=== PATIENT | female | born 1970 | race Hispanic/Latino ===

== ENCOUNTER 2017-11-24 09:44 | Outpatient (CLI) | payer BC ==
--- NOTE | 2017-11-24 12:48 | MRI ---
MRI OF THE LUMBAR SPINE WITHOUT CONTRAST: INDICATION: Low back pain with lumbar radiculopathy. TECHNIQUE: Multiplanar, multisequence MR images were obtained of the lumbar spine. No comparisons are available . FINDINGS: At L5-S1, there is a broad-based bulge with facet hypertrophy inducing mild central canal narrowing w ith moderate bilateral neural foraminal narrowing, left greater than right. At L4-5, there is a broad-based bulge with facet joint degenerative change without appreciable centra l canal or neural foraminal narrowing. At L3-4, there is a broad-based bulge without appreciable central canal or neural foraminal narrowing . At L2-3, there is a broad-based bulge with superimposed ventral disk protrusion without appreciable n eural foraminal narrowing. At L1-2, there is no appreciable central canal or neural foraminal narrowing. IMPRESSION: 1. Multilevel spondylosis of the lumbar spine most pronounced at L5-S1 where there is a broad-based bulge. The broad-based bulge does contact the traversing bilateral S1 nerve roots without definite i mpingement. There is moderate bilateral neural foraminal narrowing, left greater than right, and L5- S1. 2. Broad-based bulge superimposed on central disk protrusion at L2-3 causing mild ventral effacement of the anterior thecal sac. POS: MELINDA
== END 2017-11-24 09:45 | disposition home or self-care (01) ==
LOC: SCSMRI 09:44
DX: M51.17 Intervertebral disc disorders with radiculopathy, lumbosacral region (principal); M51.16 Intervertebral disc disorders with radiculopathy, lumbar region; M47.26 Other spondylosis with radiculopathy, lumbar region; M47.27 Other spondylosis with radiculopathy, lumbosacral region; M99.83 Other biomechanical lesions of lumbar region
CPT/HCPCS: 72148

== ENCOUNTER 2017-12-30 15:37 | Outpatient (CLI) | payer BC | END 2017-12-30 15:38 | disposition home or self-care (01) | LOC: LABBT 15:37 | PROVIDERS: ATTEND Neurological Surgery | DX: Z01.818 Encounter for other preprocedural examination (principal); M54.16 Radiculopathy, lumbar region | CPT/HCPCS: 93005; 93010 ==

== ENCOUNTER 2018-01-04 05:44 | Day surgery (SDC) | payer BC ==
[2017-12-30 16:01] VITALS: BMI 34.6
--- NOTE | 2018-01-04 01:36 | HP ---
HISTORY OF PRESENT ILLNESS: Ms. Westfall is a 47-year-old woman, who is presenting today for evaluation o f bilateral S1 pains. She has an MRI from [facility] that reveals broad based disk protrusi on at L5 that impedes upon of the S1 nerve roots in the lateral recesses bilaterally. She has treate d this with injections, physical therapy, and medications and hopes to move forward with surgery at t his time. PAST MEDICAL HISTORY: Significant for hypercholesterolemia, hypertension, diabetes, iron deficiency anemia, anxiety, thyroid cancer and hysterectomy. CURRENT MEDICATIONS: Include tramadol, escitalopram, glimepiride, norethindrone, eflornithine, lisin opril, iron, metformin, simvastatin, hydroxyzine and gabapentin. PHYSICAL EXAMINATION: NEUROLOGIC: The patient is alert and oriented x3. Gait is mildly antalgic. Lower extremity motor e xam is normal. ASSESSMENT: Lumbar radiculopathy. PLAN: Dr. Cabrera met with the patient, reviewed imaging and advocated for an L5 decompression and pos sible diskectomy. He explained to the patient the risks, benefits, and alternatives to the procedure . The patient expressed understanding and would like to move forward with surgery as discussed. I d o believe the patient is mentally competent and capable of making medical decisions for herself and w e will move forward with surgery as planned. Sebastian Werner PA-C dictating for Dr. Cabrera.
[2018-01-04] MEDS ORDERED: Thrombin 5000 UNITS/5 ML VIAL ONE (07:02)
[2018-01-04] MEDS ORDERED: Bupivacaine HCl 0.5%/Epinephrine 1:200,000/PF 30 ml Vial ONE (07:02)
[2018-01-04] MEDS ORDERED: CEFAZOLIN/Water 2 GM/20 ML SYRINGE ONE (07:31)
[2018-01-04] MEDS ORDERED: Midazolam HCl 2 mg/2 ml Vial ONE (07:56)
[2018-01-04] MEDS ORDERED: Fentanyl 100 MCG/2 ML VIAL ONE ×3 (07:56→10:18)
--- NOTE | 2018-01-04 10:39 | OP ---
DATE OF PROCEDURE: 01/04/2018 SURGEON: Remington Cabrera M.D. PAINT SPECIALIST: None. INDICATION: Pain. DIAGNOSIS: Lumbar stenosis with lumbar radiculopathy. PROCEDURE: L5 decompression, bilateral medial facetectomies. ANESTHESIA: General. TECHNIQUE: The patient was brought into the operating room and placed under general anesthesia. She was flipped from a supine or prone position on operating room table. A linear incision was planned over the L5-S1 segment. After prepping and draping and after an appropriate operative pause, the inc ision was created. The soft tissues were swept away from midline. Self-retaining retractors were pl aced in the wound for optimal exposure. After confirming the appropriate level with C-arm fluoroscop y, a high-speed cutting drill bit as well as an Adson rongeur as well as 2, 3 and 4-mm Kerrison was u sed to perform a laminectomy at the inferior two-thirds of L5 and the superior aspect of S1. Laminec fanny was extended laterally to encompass the medial third of the facet joints in order to adequately decompress the descending S1 nerve roots. The disk space was palpated and there was not a soft, prot uberant disk rather osteophyte present. There was no diskectomy performed. After decompressing the lateral recess the central canal and descending S1 nerve roots, the wound was irrigated. Hemostasis was maintained throughout. The wound was then closed in anatomic layers and a pressure dressing was applied. There were no known procedural complications.
[2018-01-04] MEDS ORDERED: HYDROcodone/Acetaminophen 5/325 mg Tablet ONE (11:57)
[2018-01-04] MEDS ORDERED: ePHEDrine/0.9% NaCl/PF SYRINGE 50 mg/10 ml ONE (14:29)
[2018-01-04] MEDS ORDERED: Ondansetron HCl/PF 4 MG/2 ML Vial ONE (14:29)
[2018-01-04] MEDS ORDERED: Glycopyrrolate 0.2 MG/ML 5 ML SYRINGE ONE (14:29)
[2018-01-04] MEDS ORDERED: Lidocaine 1% PF 5 ML VIAL ONE (14:29)
[2018-01-04] MEDS ORDERED: PROPOFOL 200 MG/20 ML VIAL ONE (14:29)
[2018-01-04] MEDS ORDERED: Ketorolac Tromethamine 30 MG/ML VIAL ONE (14:29)
== END 2018-01-04 12:20 | disposition home or self-care (01) ==
LOC: SDC 05:44
PROVIDERS: ATTEND Neurological Surgery
PROC: 01NB0ZZ Release Lumbar Nerve, Open Approach (ICD-10-PCS; principal; 2018-01-04)
DX: M48.061 Spinal stenosis, lumbar region without neurogenic claudication (principal); M54.16 Radiculopathy, lumbar region; E78.00 Pure hypercholesterolemia, unspecified; I10 Essential (primary) hypertension; E11.9 Type 2 diabetes mellitus without complications; D50.9 Iron deficiency anemia, unspecified; F41.9 Anxiety disorder, unspecified; Z79.899 Other long term (current) drug therapy; Z79.84 Long term (current) use of oral hypoglycemic drugs
CPT/HCPCS: 76001; 96374; J0670; J1885; J2001; J2250; J2405; J2704; J3010

== ENCOUNTER 2018-02-10 15:01 | Outpatient (CLI) | payer BC | END 2018-02-10 15:02 | disposition home or self-care (01) | LOC: DTY/OP 15:01 | PROVIDERS: ATTEND Surgery | DX: E78.5 Hyperlipidemia, unspecified (principal); E11.9 Type 2 diabetes mellitus without complications; I10 Essential (primary) hypertension | CPT/HCPCS: 97802 ==

== ENCOUNTER 2018-04-13 16:00 | Inpatient (IN) | payer BC ==
[2018-05-04] MEDS ORDERED: Heparin 5,000 UNITS/ML VIAL ONE (07:56)
[2018-05-04] MEDS ORDERED: CEFAZOLIN/Water 2 GM/20 ML SYRINGE ONE (07:57)
[2018-05-04] MEDS ORDERED: Bupivacaine/Epinephrine 0.25% 30 ML VIAL ONE (09:10)
[2018-05-04] MEDS ORDERED: Midazolam HCl 2 mg/2 ml Vial ONE ×2 (09:25→09:26)
[2018-05-04] MEDS ORDERED: HYDROmorphone 2 MG/ML VIAL ONE ×2 (09:26→12:01)
[2018-05-04] MEDS ORDERED: Fentanyl 100 MCG/2 ML VIAL ONE (09:26)
[2018-05-04] MEDS ORDERED: Meperidine HCl/PF 25 MG/ML VIAL SLOW IVP PRN (09:30)
[2018-05-04] MEDS ORDERED: HYDROmorphone 10 mg/100 ml CADD IVPB PRN (09:30)
[2018-05-04] MEDS ORDERED: Naloxone HCl 0.4 mg/ml Vial IV PRN (09:30)
[2018-05-04] MEDS ORDERED: diphenhydrAMINE 50 MG/ML VIAL IVP PRN ×2 (09:30→11:43)
[2018-05-04] MEDS ORDERED: Communication Order-Pharmacy FS SCH (09:30)
[2018-05-04] MEDS ORDERED: diphenhydrAMINE 25 MG CAP PO PRN (09:30)
[2018-05-04] MEDS ORDERED: HYDROmorphone 2 MG/ML VIAL SLOW IVP PRN (09:30)
[2018-05-04] MEDS ORDERED: Promethazine HCl 25 MG/ML VIAL SLOW IVP PRN (09:30)
[2018-05-04] MEDS ORDERED: Promethazine HCl 25 MG/ML VIAL IM PRN ×3 (09:30→11:43)
[2018-05-04] MEDS ORDERED: Ondansetron PF 4 MG/2 ML Vial IVP PRN ×2 (09:30→11:43)
[2018-05-04] MEDS ORDERED: Ondansetron HCl/PF 4 MG/2 ML Vial IVP PRN (09:30)
[2018-05-04] MEDS ORDERED: diphenhydrAMINE 50 MG/ML VIAL IM PRN (09:30)
[2018-05-04] MEDS ORDERED: Zolpidem Tartrate 5 MG TAB PO PRN (09:30)
[2018-05-04] MEDS ORDERED: hydrALAZINE 20 MG/ML VIAL SLOW IVP PRN (11:43)
[2018-05-04] MEDS ORDERED: Dextrose 50% Abboject 50 ML SYRINGE SLOW IVP PRN (11:43)
[2018-05-04] MEDS ORDERED: Hydrocodone-Acetamin 15 ML UDCUP PO PRN (11:43)
[2018-05-04] MEDS ORDERED: Dextrose 5% in Water 1,000 ML IV PRN (11:43)
[2018-05-04] MEDS ORDERED: Acetaminophen 1,000 MG in Premix Bag 1 BAG IVPB SCH (12:00)
--- NOTE | 2018-05-04 12:22 | OP ---
PREOPERATIVE DIAGNOSES: Lap band intolerance and obesity. SURGEON: Buddy Haro M.D. PROCEDURES PERFORMED: Laparoscopic removal of lap band and port, laparoscopic sleeve gastrectomy, in traoperative esophagogastroscopy. INDICATIONS: This is a 48-year-old female who has had a previous lap band that she was unable to tiny erate any fills. She gained her weight back. FINDINGS: She had a very thick capsule around the band, 38 [place] bougie used. PROCEDURE IN DETAIL: After informed consent was obtained, patient was taken to the operating room an d given general endotracheal anesthesia. She was placed in supine position. The abdomen was prepped and draped in usual fashion. Local anesthesia was infiltrated subcutaneously and deep and a 12 mm i ncision was performed approximately 8 inches below the xiphoid slightly to the left. Veress needle i nserted. Drop test performed. Pneumoperitoneum was created to a volume of 2 liters of carbon dioxid e. Utilizing a bladeless 12 mm trocar and 0 degree laparoscope, direct visual entry in the abdominal cavity was performed. Pneumoperitoneum was created to a pressure of 15 mmHg. The patient was place d in steep reverse Trendelenburg position. Damarisen liver retractor inserted. Left lobe of liver r etracted superiorly. The pylorus was identified and a 12 mm port placed on the right beneath it, two 12s placed left subcostal. The band tubing was found and was divided sharply. Then the band tubing was traced down to the buckle. The buckle was dissected out. She had a very thick capsule around t he band. This was incised circumferentially and the lap band was removed from around the stomach and then removed from the abdomen. The omentum was taken off the greater curvature 5 cm from the pyloru s utilizing the LigaSure. Short gastrics divided with LigaSure, left crura defined with the LigaSure . A 38-[place] bougie was then inserted and directed into the antrum. The linear [address] apler used to divide the antrum to the bougie, gold load along the bougie. Then a blue was used. en, I went back to a gold as we got into the thicker part of the upper stomach near the band and even tually another blue. Then, that upper staple line was oversewn with interrupted 2-0 silk figure-of-e ight to give extra reinforcement where the band had been. The bougie removed. The video endoscope w as inserted under direct vision and advanced into the sleeve. The staple line was inspected. There was no bleeding. Staple line then tested by inflating the new stomach with pressurized air under luis eduardo er. There was no air leak. Stomach decompressed. Scope removed. The remnant stomach removed from the abdomen through the left lateral port site. The lap band port was then removed. It was in the m idline, so I had to make a separate incision to remove it. It had #4 Ethibond sutures securing it to the fascia. These were removed and the lap band port and tubing removed. Then, the abdomen was lynn nsufflated. The stomach was inspected. There was no bleeding. The remnant stomach was removed from the abdomen through the left lateral port site. The fascia was closed with 0 Vicryl suture and the GraNee needle. Trocars and retractors were removed. The skin was closed with interrupted 4-0 Rapide . Dermabond was applied. The patient tolerated the procedure well and was transferred to recovery i n good condition. Sponge and needle count verified correct x2.
[2018-05-04 13:43] VITALS: BMI 34.9
[2018-05-04] MEDS: Ketorolac Tromethamine 30 MG/ML VIAL IVP SCH ×3 (13:52→22:59)
[2018-05-04] MEDS ORDERED: CEFAZOLIN/Water 2 GM/20 ML SYRINGE SLOW IVP SCH ×2 (16:00→18:00)
[2018-05-04] MEDS: Acetaminophen 1,000 MG in Premix Bag 1 BAG IVPB SCH ×2 (17:09→22:57)
[2018-05-04] MEDS: CEFAZOLIN 2 GM/50 ML-DEXTROSE 50 ML IVPB SCH (17:37)
[2018-05-04] MEDS: D5 1/2 NS w/20 mEq KCL 1,000 ML IV SCH ×2 (17:41→22:57)
[2018-05-05] MEDS: CEFAZOLIN 2 GM/50 ML-DEXTROSE 50 ML IVPB SCH (02:58)
[2018-05-05] MEDS: D5 1/2 NS w/20 mEq KCL 1,000 ML IV SCH ×2 (02:59→11:36)
[2018-05-05 03:04] VITALS: TEMP 98.2
[2018-05-05] MEDS: Acetaminophen 1,000 MG in Premix Bag 1 BAG IVPB SCH ×2 (05:02→10:56)
[2018-05-05] MEDS: Ketorolac Tromethamine 30 MG/ML VIAL IVP SCH ×2 (05:03→13:18)
[2018-05-05 06:15] LABS: #Monocytes 0.5 thou/uL (0.11-0.59); #Neutrophils 8.1 thou/uL (1.40-6.50); %Basophils 0.5 % (0.0-1.0); %Eosinophils 0.1 % (0.0-10.0); %Lymphocytes 19.1 % (21.0-51.0); %Monocytes 5.1 % (0.0-10.0); %Neutrophils 75.3 % (42.0-75.0); Hemoglobin 12.5 g/dL (12.0-16.0); Mean Corpuscular HGB CONC 33.8 g/dL (32.0-36.0); Mean Corpuscular Hemoglobin 32.5 pg (27.0-31.0); Mean Corpuscular Volume 96.1 fL (78.0-98.0); Mean Platelet Volume 7.9 fL (7.4-10.4); Platelet Count 263 thou/uL (130-400); RBC Distribution Width 11.6 % (11.5-14.5); Red Blood Cell (RBC) Count 3.86 mill/uL (4.20-5.40); White Blood Cell (WBC) Count 10.7 thou/uL (4.8-10.8)
[2018-05-05 06:57] LABS: Anion Gap 11 mmol/L (10-20); BUN (Urea Nitrogen) 9 mg/dL (7.0-18.7); Calc. Creatinine Clearance 139 mL/min (70-130); Calcium 8.4 mg/dL (7.8-10.44); Carbon Dioxide 26 mmol/L (22-29); Chloride 105 mmol/L (98-107); Estimated GFR-MDRD 82; Glucose 213 mg/dL (70-105); Potassium 3.7 mmol/L (3.5-5.1); Sodium 138 mmol/L (136-145)
[2018-05-05] MEDS ORDERED: Enoxaparin Sodium 40 MG/0.4 ML SYRINGE SC SCH (09:00)
[2018-05-05] MEDS ORDERED: Pantoprazole 40 MG VIAL IVP SCH (09:00)
--- NOTE | 2018-05-05 09:42 | RAD ---
BARIUM SWALLOW/UPPER GI: History: 48-year-old female for post op gastric bypass and vertical sleeve. Fluoroscopy time: 0.4 minutes; dose 4.4366 Gycm2 FINDINGS: Patient was given 15 cc of Gastrografin orally in the upright position. Contrast median passes readil y through the distal esophagus and post-operative stomach without evidence for obstruction or extrava sation. IMPRESSION: Unremarkable post op gastric sleeve barium swallow and upper GI. POS: [facility]DA
[2018-05-05] MEDS ORDERED: GASTROGRAFIN 30 ML BOT ONE (10:45)
[2018-05-05 11:49] VITALS: BP 136/90
--- NOTE | 2018-05-05 13:43 | DIS ---
DATE OF ADMISSION: 05/04/2018 DATE OF DISCHARGE: 05/05/2018 DISCHARGE DIAGNOSES: Lap band intolerance, morbid obesity and a small gastric serosal polyp that was removed. PROCEDURES DURING ADMISSION: Laparoscopic sleeve gastrectomy, removal of lap band, biopsy of the sma ll polyp. HOSPITAL COURSE: The patient was admitted, taken to the operating room. She underwent removal of la p band port and sleeve gastrectomy with intraoperative esophagogastroscopy and biopsy of this tiny li ttle polypoid lesion. Postoperatively, she has done well. X-ray was fine, started on liquids, derik ating well. She is discharged home in good condition on hydrocodone and Zofran. She will follow up with me in 2 weeks.
== END 2018-05-05 13:00 | disposition home or self-care (01) | DRG 620 ==
LOC: SURG A 05-04 06:59
PROVIDERS: ADMIT Surgery; ATTEND Surgery
PROC: 0DB64Z3 Excision of Stomach, Percutaneous Endoscopic Approach, Vertical (ICD-10-PCS; principal; 2018-05-04)
PROC: 0DJ08ZZ Inspection of Upper Intestinal Tract, Via Natural or Artificial Opening Endoscopic (ICD-10-PCS; 2018-05-04)
DX: E66.01 Morbid (severe) obesity due to excess calories (principal); K95.09 Other complications of gastric band procedure; Z68.34 Body mass index [BMI] 34.0-34.9, adult; M96.1 Postlaminectomy syndrome, not elsewhere classified; M47.896 Other spondylosis, lumbar region; M43.16 Spondylolisthesis, lumbar region; M48.02 Spinal stenosis, cervical region; M54.12 Radiculopathy, cervical region; M47.816 Spondylosis without myelopathy or radiculopathy, lumbar region; M47.817 Spondylosis without myelopathy or radiculopathy, lumbosacral region; M51.16 Intervertebral disc disorders with radiculopathy, lumbar region
CPT/HCPCS: 72100; 74241; 80048; 85025; 88305; 88307; 88312; 88341; 88342; 94760; 99244; C9113; G0463; J0131; J1170; J1644; J1650; J1885; J2250; J3010

== ENCOUNTER 2018-04-21 16:24 | Outpatient (CLI) | payer BC ==
[2018-04-21 17:29] LABS: ALT (SGPT) 33 U/L (8-55); AST (SGOT) 25 U/L (5-34); Albumin 4.5 g/dL (3.5-5.0); Alkaline Phosphatase 75 U/L (40-150); Bilirubin, Direct Less than 0.1 mg/dL (0.1-0.3); Bilirubin, Total 0.2 mg/dL (0.2-1.2)
--- NOTE | 2018-04-21 17:58 | RAD ---
CHEST TWO VIEWS: 04/21/18 HISTORY: Preop. Heart size and mediastinum are within normal limits. The lungs are clear of infiltrates. No significa nt bony findings. IMPRESSION: No active intrathoracic disease. POS: [facility]
== END 2018-04-21 16:25 | disposition home or self-care (01) ==
LOC: LABBT 16:24
PROVIDERS: ATTEND Surgery
DX: Z01.818 Encounter for other preprocedural examination (principal); E66.01 Morbid (severe) obesity due to excess calories; T85.858A Stenosis due to other internal prosthetic devices, implants and grafts, initial encounter
CPT/HCPCS: 71046; 80076; 93005; 93010

== ENCOUNTER 2018-05-01 10:29 | Outpatient (CLI) | payer BC ==
--- NOTE | 2018-05-01 13:56 | RAD ---
3 VIEWS LUMBAR SPINE: Date: 05/01/18 INDICATION: Postop. COMPARISON: MRI lumbar spine dated 11/24/17. FINDINGS: There is slight retrolisthesis of L3 on L4, L2 on L3, and L1 on L2 that is accentuated with hyperexte nsion, but does not appear to fully reduce with flexion or neutral positioning. There is multilevel d isc degenerative disease most pronounced at L5-S1, as well as the L2-3 level. No acute fracture is ev ident. There is a gastric band present within the upper abdomen. IMPRESSION: 1. Moderate multilevel spondylosis of the lumbar spine. 2. Mild retrolisthesis of L3 on L4, L2 on L3, and L2 on L2, accentuated with extension but does not fully reduce with neutral and flexion positioning. POS: [facility]
== END 2018-05-01 10:30 | disposition home or self-care (01) ==
LOC: RAD 10:29
PROVIDERS: ATTEND Specialist
DX: M96.1 Postlaminectomy syndrome, not elsewhere classified (principal); M47.896 Other spondylosis, lumbar region; M43.16 Spondylolisthesis, lumbar region
CPT/HCPCS: 72100; 99244; G0463

== ENCOUNTER 2018-05-12 14:32 | Outpatient (CLI) | payer BC ==
--- NOTE | 2018-05-12 19:18 | MRI ---
MRI OF THE LUMBAR SPINE WITH AND WITHOUT CONTRAST 05/12/18 COMPARISON: 11/24/17 HISTORY: Low back pain, lumbar spine surgery January 03, 2018, post laminectomy syndrome. TECHNIQUE: Multiplanar and multisequence MR imaging of the lumbar spine is obtained with and without contrast. FINDINGS: The sagittal STIR imaging demonstrates no focal area of osseous marrow edema. On the basis of five teri mbar type vertebral bodies, the conus medullaris terminates at the T12-L1 level. There is no significant anterolisthesis of retrolisthesis noted. T12-L1: There is mild disc space narrowing and disc desiccation. There is no significant central mayuri l or neural foraminal stenosis. There is right sided anterior osteophyte formation. L1-2: There is mild bilateral facet hypertrophy. Intervertebral disc height and signal intensity is w ithin normal limits with no significant central canal or neural foraminal stenosis. L2-3: There is bilateral facet hypertrophy. There is disc space narrowing and disc desiccation with d isc bulge and small central disc protrusion. There is anterior osteophyte formation. No significant n eural foraminal stenosis or central canal stenosis. L3-4: Mild bilateral facet hypertrophy. Intervertebral disc height and signal intensity within normal limits with no central or neural foraminal stenosis. L4-5: There is moderate bilateral facet hypertrophy and hypertrophy of the ligamentum flavum on the r ight. Intervertebral disc height and signal intensity within normal limits with no significant centr al canal or neural foraminal stenosis. L5-S1: There is disc space narrowing, disc desiccation, and disc bulge present. Bilateral laminectomy changes are noted. There is no significant central canal stenosis. There is mild right and severe le ft neural foraminal stenosis. The postcontrast imaging demonstrates no abnormal enhancement involving the nerve roots of the cauda equina. There is enhancement of the posterior midline paraspinal soft tissues at the L5 bilateral laminectomy site. There is prominent degenerative end plate change seen laterally on the left at the L5-S1 level . there is ill-defined mild enhancement seen involving the paraspinal musculature lateral to the L5 a nd S1 vertebral body on the left including the axial level of the L5-S1 disc space. There is enhancem ent along the course of the exiting L5 nerve root on the left. The intervening intervertebral disc do es not demonstrate normal increased T2 signal or significant abnormal enhancement. When compared to the noncontrast enhanced MRI performed 11/24/17, the degree of degenerative change a nd associated neural foraminal stenosis on the left at L5-S1 appears stable. Imaged retroperitoneal s tructures appear grossly unremarkable. IMPRESSION: Interval bilateral laminectomy at the L5-S1 level. At this level, there is prominent left lateral deg enerative change with left lateral osteophyte formation and encroachment on the left neural foramen w ith severe left neural foraminal stenosis. The postcontrast imaging on this examination demonstrates enhancement of the paraspinal musculature adjacent to the lateral aspect of the L 4 and L5 vertebral bodies on the left, including the soft tissues adjacent to the exiting L5 nerve root. This suggests s car in this region. POS: MELINDA
== END 2018-05-12 14:33 | disposition home or self-care (01) ==
LOC: BICMRI 14:32
PROVIDERS: ATTEND Specialist
DX: M96.1 Postlaminectomy syndrome, not elsewhere classified (principal); M25.78 Osteophyte, vertebrae; M47.897 Other spondylosis, lumbosacral region; Z98.890 Other specified postprocedural states
CPT/HCPCS: 72158

== ENCOUNTER 2018-11-13 15:23 | Outpatient (CLI) | payer BC ==
--- NOTE | 2018-11-20 10:08 | MMO ---
Bilateral MAMMO Bilat Screen DDI. CLINICAL HISTORY: Patient is 48 years old and is seen for screening. The patient has the following family history of breast cancer: maternal aunt, at age 56; maternal grandmother and paternal grandmother. The patient has a history of thyroid cancer in 2017. The patient has a history of needle biopsy in 2011 - benign. VIEWS: The views performed were: bilateral craniocaudal and bilateral mediolateral oblique. FILMS COMPARED: The present examination has been compared to prior imaging studies performed at This study has been interpreted with the assistance of computer-aided detection. MAMMOGRAM FINDINGS: There are scattered fibroglandular densities. Left biopsy clip. There are no suspicious masses, calcifications or areas of architectural distortion. There are benign appearing calcifications in both breasts. There are no suspicious masses, suspicious calcifications, or new areas of architectural distortion. IMPRESSION: THERE IS NO MAMMOGRAPHIC EVIDENCE OF MALIGNANCY. A ROUTINE FOLLOW-UP MAMMOGRAM IN 1 YEAR IS RECOMMENDED. ACR BI-RADS Category 2 - Benign finding MAMMOGRAPHY NOTE: 1. A negative mammogram report should not delay a biopsy if a dominant of clinically suspicious mass is present. 2. Approximately 10% to 15% of breast cancers are not detected by mammography. 3. Adenosis and dense breasts may obscure an underlying neoplasm.
== END 2018-11-13 15:24 | disposition home or self-care (01) ==
LOC: SCSMAMMO 15:23
PROVIDERS: ATTEND Nurse Practitioner Family
DX: Z12.31 Encounter for screening mammogram for malignant neoplasm of breast (principal); Z80.3 Family history of malignant neoplasm of breast; Z85.850 Personal history of malignant neoplasm of thyroid
CPT/HCPCS: 77067

== ENCOUNTER 2018-12-14 17:32 | Inpatient (IN) | payer BC ==
[2018-12-14 18:29] LABS: Bilirubin Negative (Negative); Blood, Urine Negative (Negative); Clarity CLEAR (Clear); Glucose, Urine (Dipstick) Negative (Negative); Leukocyte Trace (Negative); Nitrite Negative (Negative); Protein, Urine (Dipstick) Negative (Neg-Trace); Specific Gravity, Urine 1.011 (1.002-1.036); Urobilinogen 0.2 mg/dL (0.2-1.0); pH, Urine 6.5 (5.0-9.0)
[2018-12-14 18:31] LABS: Bacteria/HPF None Seen HPF (None Seen); Hyaline Casts/LPF 4-6 HYALINE CAST LPF (0-3 Hyaline); Pathc Cast-AUWi Flag 0.95 (0-2.49); RBC/HPF 0-3 HPF (0-3); Squamous Epithelial 0-3 HPF (0-3); WBC/HPF 0-3 HPF (0-3)
[2018-12-14 19:01] LABS: #Basophils 0.1 thou/uL (0.0-0.2); #Eosinphils 0.4 thou/uL (0.0-0.7); #Lymphocytes 3.5 thou/uL (1.20-3.40); #Monocytes 0.6 thou/uL (0.11-0.59); #Neutrophils 2.9 thou/uL (1.40-6.50); %Basophils 1.7 % (0.0-1.0); %Eosinophils 4.8 % (0.0-10.0); %Lymphocytes 46.2 % (21.0-51.0); %Monocytes 8.3 % (0.0-10.0); %Neutrophils 39.1 % (42.0-75.0); Hemoglobin 13.1 g/dL (12.0-16.0); Mean Corpuscular HGB CONC 33.8 g/dL (32.0-36.0); Mean Corpuscular Hemoglobin 32.2 pg (27.0-31.0); Mean Corpuscular Volume 95.2 fL (78.0-98.0); Mean Platelet Volume 7.3 fL (7.4-10.4); Platelet Count 258 thou/uL (130-400); RBC Distribution Width 11.3 % (11.5-14.5); Red Blood Cell (RBC) Count 4.07 mill/uL (4.20-5.40); White Blood Cell (WBC) Count 7.5 thou/uL (4.8-10.8)
[2018-12-14 19:24] LABS: ALT (SGPT) 409 U/L (8-55); AST (SGOT) 73 U/L (5-34); Albumin 4.2 g/dL (3.5-5.0); Alkaline Phosphatase 170 U/L (40-150); Anion Gap 12 mmol/L (10-20); BUN (Urea Nitrogen) 8 mg/dL (7.0-18.7); Bilirubin, Total 0.5 mg/dL (0.2-1.2); Calc. Creatinine Clearance 0 mL/min (70-130); Calcium 10.3 mg/dL (7.8-10.44); Carbon Dioxide 31 mmol/L (22-29); Chloride 98 mmol/L (98-107); Estimated GFR-MDRD 86; Glucose 105 mg/dL (70-105); Lipase 10 U/L (8-78); Potassium 3.5 mmol/L (3.5-5.1); Protein, Total 7.2 g/dL (6.0-8.3); Sodium 137 mmol/L (136-145)
[2018-12-14] MEDS ORDERED: Morphine 4 MG/ML VIAL ONE (19:24)
[2018-12-14] MEDS ORDERED: Ondansetron PF 4 MG/2 ML Vial ONE (19:24)
--- NOTE | 2018-12-14 19:35 | ULT ---
Exam: Right upper quadrant ultrasound: HISTORY: Right upper quadrant abdominal pain COMPARISON: None FINDINGS: Liver: Within normal limits Gallbladder: Multiple echogenic foci are seen in the gallbladder lumen demonstrating posterior shadow ing most compatible with a gallbladder filled with multiple gallbladder calculi. A wall echo shadow is present. There is no gallbladder wall thickening or pericholecystic fluid seen. Common bile duct: The common duct is normal in caliber measuring 0.2 cm in diameter. Pancreas: Obscured by bowel gas. Right kidney: Right kidney demonstrates a normal sonographic appearance. The right kidney measures 1 0 cm in length. IVC: The visualized IVC demonstrates a normal sonographic appearance. IMPRESSION: Cholelithiasis with multiple gallbladder calculi filling the gallbladder lumen. The common duct is no rmal in caliber.
[2018-12-14] MEDS ORDERED: Ondansetron PF 4 MG/2 ML Vial IVP PRN (21:44)
[2018-12-14] MEDS ORDERED: Ondansetron ODT 4 MG TAB SL PRN (21:44)
[2018-12-14] MEDS ORDERED: Morphine 4 MG/ML VIAL SLOW IVP PRN (21:44)
[2018-12-14] MEDS: Sodium Chloride 0.9% 1,000 ML IV SCH (22:03)
[2018-12-14 23:16] VITALS: BMI 26.9
[2018-12-15] MEDS: Sodium Chloride 0.9% 1,000 ML IV SCH ×4 (06:15→23:50)
--- NOTE | 2018-12-15 08:12 | HP ---
CHIEF COMPLAINT: Right upper quadrant abdominal pain. HISTORY OF PRESENT ILLNESS: The patient is a 48-year-old female, who underwent sleeve gastrectomy in April of 2018. She has lost about 55 pounds. She reports a 2-week history of right upper quadrant pain radiating to back, associated with nausea. Over the last 2 days, she has been vomiting every time she tried to eat. She came to the emergency room, where an ultrasound showed cholelithiasis. She does report some pruritus and some dark urine. PAST MEDICAL HISTORY: Back pain, diabetes, hypertension, hyperlipidemia, and thyroid cancer. PAST SURGICAL HISTORY: She has had a sleeve gastrectomy. She has had a thyroidectomy. She has had a total abdominal hysterectomy. MEDICATIONS: 1. Metformin. 2. Lisinopril. 3. Simvastatin. 4. Lexapro. 5. Multivitamins. ALLERGIES: NO KNOWN DRUG ALLERGIES. SOCIAL HISTORY: She works as a loan secretary. No tobacco or alcohol. FAMILY HISTORY: Diabetes and hyperlipidemia. PHYSICAL EXAMINATION: GENERAL: Temperature 98.1, pulse 58, and blood pressure 127/82. GENERAL: She is well-developed, well-nourished female, in no apparent distress. No jaundice. LUNGS: Clear. HEART: Regular rate and rhythm. ABDOMEN: Obese, soft, and nontender. She has well-healed surgical scars. LABORATORY DATA: Her white count is 7.5, H and H are 13 and 38, and platelet count 258. Electrolytes are fine. Her AST, ALT, and alkaline phosphatase are elevated. Bilirubin is normal. Lipase normal. ASSESSMENT: Severe biliary colic with elevated liver functions. PLAN: Laparoscopic cholecystectomy with cholangiogram. CONSENT: I have discussed planned procedure as well as risk of bleeding, infection, injury to bile duct, injury to bowel, need to open, she understands and gives informed consent. Job ID: [id number]
[2018-12-15] MEDS ORDERED: cefOXitin Sodium/Dextrose,Iso 2 GM in Premix Bag 1 BAG IVPB SCH (08:15)
[2018-12-15 08:27] LABS: ALT (SGPT) 292 U/L (8-55); AST (SGOT) 54 U/L (5-34); Albumin 3.6 g/dL (3.5-5.0); Alkaline Phosphatase 139 U/L (40-150); Bilirubin, Direct 0.3 mg/dL (0.1-0.3); Bilirubin, Total 0.6 mg/dL (0.2-1.2); Protein, Total 6.1 g/dL (6.0-8.3)
[2018-12-15] MEDS ORDERED: Bupivacaine/Epinephrine 0.25% 30 ML VIAL ONE ×2 (09:26→21:19)
[2018-12-15] MEDS ORDERED: Fentanyl 250 MCG/5 ML VIAL ONE (09:33)
[2018-12-15] MEDS ORDERED: Iothalamate Meglumine 60% 50 ML VIAL FS ONE (09:50)
--- NOTE | 2018-12-15 10:53 | RAD ---
OPERATIVE CHOLANGIOGRAM 2 VIEWS: Date: 12/15/18 HISTORY: Intraoperative films. FINDINGS: These show filling of a nondilated common duct without any definite filling defects. There is emptyin g into the duodenum. IMPRESSION: Unremarkable operative cholangiogram. POS: [facility]
[2018-12-15] MEDS ORDERED: Dextrose 50% Abboject 50 ML SYRINGE SLOW IVP PRN (11:01)
[2018-12-15] MEDS ORDERED: HYDROcodone/Acetaminophen 10/325 mg Tablet PO PRN ×2 (11:01)
[2018-12-15] MEDS ORDERED: Ondansetron PF 4 MG/2 ML Vial IVP PRN (11:01)
[2018-12-15] MEDS ORDERED: Dextrose 5% in Water 1,000 ML IV PRN (11:01)
[2018-12-15] MEDS ORDERED: Calcium Carbonate 500 MG ChewTAB PO PRN (11:01)
[2018-12-15] MEDS ORDERED: Insulin Regular 300 UNITS/3 ML VIAL SC PRN (11:01)
[2018-12-15] MEDS ORDERED: hydrALAZINE 20 MG/ML VIAL SLOW IVP PRN (11:01)
[2018-12-15] MEDS ORDERED: Morphine 4 MG/ML VIAL SLOW IVP PRN ×2 (11:01)
[2018-12-15] MEDS ORDERED: Mag-Al 1200 mg/1200 mg/30 ML UDCUP PO PRN (11:01)
[2018-12-15] MEDS ORDERED: Promethazine HCl 25 MG/ML VIAL IM PRN ×3 (11:01→22:44)
[2018-12-15] MEDS ORDERED: Ondansetron HCl/PF 4 MG/2 ML Vial IVP PRN (11:09)
[2018-12-15] MEDS ORDERED: Promethazine HCl 25 MG/ML VIAL SLOW IVP PRN ×2 (11:09→22:44)
[2018-12-15] MEDS ORDERED: Fentanyl 100 MCG/2 ML VIAL ONE ×3 (11:14→22:38)
--- NOTE | 2018-12-15 12:13 | OP ---
DATE OF PROCEDURE: 12/15/2018 PREOPERATIVE DIAGNOSIS: Severe biliary colic. PROCEDURES PERFORMED: Laparoscopic cholecystectomy with intraoperative cholangiogram. INDICATIONS: The patient is a 48-year-old female, who has recently had a sleeve gastrectomy and lost weight. She developed severe right upper quadrant pain with elevated liver function tests. Ultrasound showed multiple gallstones. Cholangiogram was fine. DESCRIPTION OF PROCEDURE: After informed consent was obtained, the patient was taken to the operating room, given general endotracheal anesthesia, placed in supine position. Her abdomen was prepped and draped in usual fashion. An epigastric incision was performed in the midline. Subcu divided sharply. The fascia grasped and 2 stay sutures of 0 Vicryl placed through side of midline. Midline incised. Digital palpation revealed no local adhesions. Blunt 12 mm trocar inserted. Pneumoperitoneum was created to a pressure of 15 mmHg. A 0-degree laparoscope was inserted under direct vision. Three 5 mm ports were placed subcostally. The gallbladder was grasped and advanced superiorly, the peritoneum dissected off to expose the cystic duct and cystic artery in critical view. The clip was placed at the base of the gallbladder on the cystic duct and incision made in the cystic duct. An intraoperative cholangiogram was performed utilizing an Arrow cholangiocatheter and fluoroscopy. This showed free flow into the duodenum with no filling defects. Normal intrahepatic ducts. The cystic duct was triply ligated with hemoclips and divided. The artery triply ligated with hemoclips and divided. The gallbladder removed from its fossa utilizing electrocautery removed from the abdomen through the umbilical port. Hemostasis assured. Trocars and retractors removed. The fascia closed with interrupted 0 Vicryl sutures. Skin closed with interrupted 4-0 Rapide. Dermabond applied. The patient tolerated the procedure well, transferred to Recovery in good condition. Sponge and needle count verified correct x2. Job ID: [id number]
[2018-12-15] MEDS: Ketorolac Tromethamine 30 MG/ML VIAL IVP SCH ×3 (12:40→23:48)
[2018-12-15] MEDS ORDERED: cefOXitin 2 GM in Sodium Chloride 0.9% 100 ML IVPB SCH (14:00)
[2018-12-15] MEDS ORDERED: traMADol HCl 50 MG TAB PO PRN (14:07)
[2018-12-15] MEDS ORDERED: Sodium Chloride 0.9% 1,000 ML IV SCH (15:45)
[2018-12-15 16:42] LABS: Anion Gap 14 mmol/L (10-20); BUN (Urea Nitrogen) 8 mg/dL (7.0-18.7); Calc. Creatinine Clearance 120 mL/min (70-130); Calcium 7.4 mg/dL (7.8-10.44); Carbon Dioxide 21 mmol/L (22-29); Chloride 109 mmol/L (98-107); Estimated GFR-MDRD Greater than 90; Glucose 215 mg/dL (70-105); Potassium 4.1 mmol/L (3.5-5.1); Sodium 140 mmol/L (136-145)
[2018-12-15 16:45] LABS: Lactic Acid 2.5 mmol/L (0.5-2.2)
[2018-12-15 16:46] LABS: #Basophils 0.1 thou/uL (0.0-0.2); #Eosinphils 0.1 thou/uL (0.0-0.7); #Lymphocytes 1.3 thou/uL (1.20-3.40); #Monocytes 0.5 thou/uL (0.11-0.59); #Neutrophils 10.1 thou/uL (1.40-6.50); %Basophils 0.4 % (0.0-1.0); %Eosinophils 0.7 % (0.0-10.0); %Lymphocytes 10.7 % (21.0-51.0); %Monocytes 4.3 % (0.0-10.0); %Neutrophils 83.8 % (42.0-75.0); Hemoglobin 8.8 g/dL (12.0-16.0); Mean Corpuscular HGB CONC 34.1 g/dL (32.0-36.0); Mean Corpuscular Hemoglobin 32.7 pg (27.0-31.0); Mean Corpuscular Volume 95.8 fL (78.0-98.0); Mean Platelet Volume 7.8 fL (7.4-10.4); Platelet Count 207 thou/uL (130-400); RBC Distribution Width 11.3 % (11.5-14.5); Red Blood Cell (RBC) Count 2.69 mill/uL (4.20-5.40); White Blood Cell (WBC) Count 12.1 thou/uL (4.8-10.8)
--- NOTE | 2018-12-15 17:01 | CT ---
CT BRAIN NONCONTRAST: DATE: 12/15/2018 HISTORY: 48-year-old female status post head trauma from fall FINDINGS: There is no evidence of acute intra-axial or extra-axial hemorrhage. There is no midline shift or any other mass effect. There is no extra-axial fluid collection. There is no evidence of obstructive hydrocephalus. Calvarium is intact. IMPRESSION: No acute intracranial findings.
[2018-12-15] MEDS: cefOXitin Sodium/Dextrose,Iso 2 GM in Premix Bag 1 BAG IVPB SCH (18:08)
[2018-12-15] MEDS: traMADol HCl 50 MG TAB PO PRN (19:52)
[2018-12-15] MEDS ORDERED: Lactated Ringer's 1,000 ML IV SCH (21:15)
[2018-12-15 21:17] LABS: #Lymphocytes 1.9 thou/uL (1.20-3.40); #Monocytes 0.5 thou/uL (0.11-0.59); #Neutrophils 9.8 thou/uL (1.40-6.50); %Basophils 0.3 % (0.0-1.0); %Eosinophils 0.2 % (0.0-10.0); %Lymphocytes 15.3 % (21.0-51.0); %Monocytes 3.7 % (0.0-10.0); %Neutrophils 80.5 % (42.0-75.0); Hemoglobin 8.3 g/dL (12.0-16.0); Mean Corpuscular Hemoglobin 32.6 pg (27.0-31.0); Mean Corpuscular Volume 95.8 fL (78.0-98.0); Mean Platelet Volume 7.2 fL (7.4-10.4); Platelet Count 229 thou/uL (130-400); RBC Distribution Width 11.2 % (11.5-14.5); Red Blood Cell (RBC) Count 2.56 mill/uL (4.20-5.40); White Blood Cell (WBC) Count 12.2 thou/uL (4.8-10.8)
[2018-12-15] MEDS ORDERED: Bupivacaine HCl 0.5%/Epinephrine 1:200,000/PF 30 ml Vial ONE (21:19)
[2018-12-15] MEDS ORDERED: HYDROmorphone 2 MG/ML VIAL SLOW IVP PRN (22:44)
[2018-12-15] MEDS ORDERED: PACU-Morphine 4MG/ML VIAL SLOW IVP PRN (22:44)
[2018-12-15] MEDS: Famotidine/PF 20 mg/2ml Vial SLOW IVP SCH (23:49)
--- NOTE | 2018-12-15 23:49 | PDOC.PN ---
- Subjective Encounter Start Date: 12/15/18 Encounter Start Time: 16:00 Subjective: Patient in bed, resting comfortably -: Denies complaints, reports patient hit her head on the cabinet -: when she passed out, reports he was able to slow her fall - Objective Vital Signs & Weight: Vital Signs (12 hours) Temp Pulse Resp BP BP Pulse Ox 12/15/18 20:18 97.7 F 114 H 18 103/65 99 12/15/18 16:41 66 100/65 12/15/18 15:30 82 91/61 12/15/18 15:28 80 93/60 12/15/18 15:26 80 86/56 L 12/15/18 15:23 90/54 L 12/15/18 15:20 87 85/55 L 12/15/18 15:15 92 77/52 L 12/15/18 12:10 98.3 F 58 L 16 150/87 H 99 Weight Weight 73.482 kg I&O: 12/14/18 12/15/18 12/16/18 06:59 06:59 06:59 Intake Total 980 2600 Balance 980 2600 Result Diagrams: 12/15/18 21:08 12/15/18 15:58 Additional Labs: Accuchecks 12/15/18 12/15/18 21:59 15:16 POC Glucose 201 H 245 H Phys Exam - Physical Examination Diffusely tender, incisions are dry and intact Musculoskeletal: pulses present Neurological: normal sensation, moves all 4 limbs Lymphatic: no nodes Psychiatric: A&O x 3 Skin: cap refill <2 seconds Deviation from normal: pale Dx/Plan (1) Cholecystitis, acute Code(s): K81.0 - ACUTE CHOLECYSTITIS Status: Acute (2) Hypothyroidism Code(s): E03.9 - HYPOTHYROIDISM, UNSPECIFIED Status: Chronic (3) Hypertension Code(s): I10 - ESSENTIAL (PRIMARY) HYPERTENSION Status: Chronic - Plan CBC, chemistry, troponin ordered by Dr. Damon -: Home meds will be restarted -: Case discussed with Dr. Damon * . Review of Systems - Review of Systems Gastrointestinal: Abdominal Pain, Other (Diffuse abdominal pain, ) Other: Syncopal episode prior to consult - Medications/Allergies Allergies/Adverse Reactions: Allergies Allergy/AdvReac Type Severity Reaction Status Date / Time No Known Allergies Allergy Verified 12/15/18 03:30 Medications: Current Medications Al Hydroxide/Mg Hydroxide (Maalox) 15 ml PO Q6H PRN PRN Reason: Dyspepsia Albuterol/Ipratropium (Duoneb) 3 ml NEB Q4H PRN PRN Reason: Wheezing Calcium Carbonate (Tums) 1,000 mg PO Q4H PRN PRN Reason: Dyspepsia Dextrose/Water (Dextrose 50%) 25 gm SLOW IVP PRN PRN PRN Reason: Hypoglycemia Enoxaparin Sodium (Lovenox) 40 mg SC 0900 [facility] Famotidine (Pepcid) 20 mg PO Q12HR [facility] Last Admin: 12/15/18 23:50 Dose: Not Given Famotidine (Pepcid) 20 mg SLOW IVP Q12HR [facility] Last Admin: 12/15/18 23:49 Dose: 20 mg Fentanyl (Pacu-Sublimaze) 50 mcg SLOW IVP Q10MIN PRN PRN Reason: Moderate to Severe Pain (6-10) Stop: 12/16/18 01:44 Glucagon (Glucagon) 1 mg IM PRN PRN PRN Reason: Hypoglycemia Hydralazine HCl (Apresoline) 10 mg SLOW IVP Q4H PRN PRN Reason: SBP > 170 or DBP > 100 Hydromorphone HCl (Pacu-Dilaudid) 0.5 mg SLOW IVP Q10MIN PRN PRN Reason: Moderate to Severe Pain (6-10) Stop: 12/16/18 01:44 Dextrose/Water (D5w) 1,000 mls @ 0 mls/hr IV .Q0M PRN PRN Reason: Hypoglycemia Sodium Chloride (Normal Saline 0.9%) 1,000 mls @ 120 mls/hr IV .Q8H20M [facility] Last Admin: 12/15/18 23:50 Dose: 1,000 mls Cefoxitin Sodium/Dextrose 2 gm (/ Device) 50 mls @ 100 mls/hr IVPB 0100,0900, 1700 [facility] Last Admin: 12/15/18 18:08 Dose: 50 mls Insulin Human Regular (Humulin R) 0 units SC .MODERATE SLIDING SC PRN PRN Reason: Moderate Correctional Scale Ketorolac Tromethamine (Toradol) 30 mg IVP Q6HR [facility] Stop: 12/20/18 12:01 Last Admin: 12/15/18 23:48 Dose: 30 mg Levothyroxine Sodium (Synthroid) mcg PO QAM [facility] Morphine Sulfate (Morphine) 2 mg SLOW IVP Q2H PRN PRN Reason: Mild Pain (1-3) Morphine Sulfate (Morphine) 4 mg SLOW IVP Q2H PRN PRN Reason: Moderate Pain (4-6) Last Admin: 12/15/18 12:39 Dose: 4 mg Morphine Sulfate (Pacu-Morphine) 4 mg SLOW IVP ONE PRN PRN Reason: Moderate to Severe Pain (6-10) Stop: 12/16/18 01:44 Non-Formulary Medication (Escitalopram Oxalate [Lexapro]) 20 mg PO DAILY [facility] Ondansetron HCl (Zofran) 4 mg IVP Q6H PRN PRN Reason: Nausea/Vomiting Promethazine HCl (Phenergan) 12.5 mg IM Q4H PRN PRN Reason: Nausea/Vomiting Promethazine HCl (Pacu-Phenergan) 6.25 mg SLOW IVP ONE PRN PRN Reason: Nausea/Vomiting Stop: 12/16/18 01:44 Promethazine HCl (Pacu-Phenergan) 6.25 mg IM ONE PRN PRN Reason: Nausea/Vomiting Stop: 12/16/18 01:44 Sodium Chloride (Flush - Normal Saline) 10 ml IVF Q12HR [facility] Last Admin: 12/15/18 23:50 Dose: 10 ml Sodium Chloride (Flush - Normal Saline) 10 ml IVF PRN PRN PRN Reason: Saline Flush Tramadol HCl (Ultram) 50 mg PO Q6H PRN PRN Reason: Moderate Pain (4-6) Tramadol HCl (Ultram) 100 mg PO Q6H PRN PRN Reason: Severe Pain (7-10) Last Admin: 12/15/18 19:52 Dose: 100 mg
[2018-12-15] MEDS: Famotidine 20 MG TAB PO SCH (23:50)
[2018-12-16] MEDS: cefOXitin Sodium/Dextrose,Iso 2 GM in Premix Bag 1 BAG IVPB SCH ×2 (01:29→09:24)
[2018-12-16] MEDS: traMADol HCl 50 MG TAB PO PRN ×2 (03:59→15:31)
[2018-12-16] MEDS: Levothyroxine 150 MCG TAB PO SCH (04:02)
[2018-12-16 05:26] LABS: #Basophils 0.1 thou/uL (0.0-0.2); #Eosinphils 0.2 thou/uL (0.0-0.7); #Lymphocytes 1.7 thou/uL (1.20-3.40); #Monocytes 0.5 thou/uL (0.11-0.59); #Neutrophils 5.4 thou/uL (1.40-6.50); %Basophils 0.9 % (0.0-1.0); %Eosinophils 2.5 % (0.0-10.0); %Lymphocytes 22.2 % (21.0-51.0); %Monocytes 6.1 % (0.0-10.0); %Neutrophils 68.4 % (42.0-75.0); Hemoglobin 8.8 g/dL (12.0-16.0); Mean Corpuscular HGB CONC 33.5 g/dL (32.0-36.0); Mean Corpuscular Hemoglobin 32.3 pg (27.0-31.0); Mean Corpuscular Volume 96.5 fL (78.0-98.0); Mean Platelet Volume 7.4 fL (7.4-10.4); Platelet Count 176 thou/uL (130-400); RBC Distribution Width 11.6 % (11.5-14.5); Red Blood Cell (RBC) Count 2.71 mill/uL (4.20-5.40); White Blood Cell (WBC) Count 7.9 thou/uL (4.8-10.8)
[2018-12-16 05:43] LABS: ALT (SGPT) 190 U/L (8-55); AST (SGOT) 55 U/L (5-34); Albumin 2.9 g/dL (3.5-5.0); Alkaline Phosphatase 98 U/L (40-150); Anion Gap 11 mmol/L (10-20); BUN (Urea Nitrogen) 10 mg/dL (7.0-18.7); Bilirubin, Total 0.6 mg/dL (0.2-1.2); Calc. Creatinine Clearance 121 mL/min (70-130); Calcium 7.5 mg/dL (7.8-10.44); Carbon Dioxide 23 mmol/L (22-29); Chloride 109 mmol/L (98-107); Estimated GFR-MDRD 89; Globulin 1.8 g/dL (2.4-3.5); Glucose 107 mg/dL (70-105); Lipase 4 U/L (8-78); Potassium 3.8 mmol/L (3.5-5.1); Protein, Total 4.7 g/dL (6.0-8.3); Sodium 139 mmol/L (136-145)
[2018-12-16] MEDS: Ketorolac Tromethamine 30 MG/ML VIAL IVP SCH ×2 (05:49→12:08)
[2018-12-16] MEDS ORDERED: Enoxaparin Sodium 40 MG/0.4 ML SYRINGE SC SCH (09:00)
[2018-12-16] MEDS: Escitalopram Oxalate 20 mg Tablet PO SCH (09:23)
[2018-12-16] MEDS: Famotidine 20 MG TAB PO SCH ×2 (09:23→21:42)
[2018-12-16] MEDS: Famotidine/PF 20 mg/2ml Vial SLOW IVP SCH (09:28)
[2018-12-16] MEDS: Sodium Chloride 0.9% 1,000 ML IV SCH (09:29)
[2018-12-16] MEDS ORDERED: Ibuprofen 600 MG TAB PO PRN (10:04)
[2018-12-16] MEDS ORDERED: Acetaminophen 500 MG TAB PO PRN (10:04)
[2018-12-16] MEDS ORDERED: Sodium Chloride 0.9% 1,000 ML IV SCH (10:08)
[2018-12-16 16:37] LABS: #Basophils 0.1 thou/uL (0.0-0.2); #Eosinphils 0.4 thou/uL (0.0-0.7); #Monocytes 0.6 thou/uL (0.11-0.59); #Neutrophils 6.4 thou/uL (1.40-6.50); %Basophils 0.6 % (0.0-1.0); %Eosinophils 4.5 % (0.0-10.0); %Lymphocytes 21.5 % (21.0-51.0); %Monocytes 5.9 % (0.0-10.0); %Neutrophils 67.6 % (42.0-75.0); Hemoglobin 8.2 g/dL (12.0-16.0); Mean Corpuscular HGB CONC 33.7 g/dL (32.0-36.0); Mean Corpuscular Hemoglobin 32.5 pg (27.0-31.0); Mean Corpuscular Volume 96.4 fL (78.0-98.0); Mean Platelet Volume 7.8 fL (7.4-10.4); Platelet Count 178 thou/uL (130-400); RBC Distribution Width 11.6 % (11.5-14.5); Red Blood Cell (RBC) Count 2.53 mill/uL (4.20-5.40); White Blood Cell (WBC) Count 9.5 thou/uL (4.8-10.8)
--- NOTE | 2018-12-16 17:25 | PRG ---
DATE OF SERVICE: 12/16/2018 Ms. Westfall is doing well today. She is tolerating her diet. She is saline locked. OBJECTIVE: VITAL SIGNS: Heart rate 80, respiratory rate 19, and blood pressure 122/49. LUNGS: Clear to auscultation. CARDIAC: Regular rate and rhythm without murmur or gallop. ABDOMEN: Soft, nontender. LABORATORY DATA: Hemoglobin is stable at 8.2, it was 8.8 this morning, checked again 8.2 this afternoon, 8.3 yesterday. She received 1 unit of blood yesterday. Her pain is under good control. We will transfer to surgical floor and she probably can be discharged home tomorrow. Job ID: [id number]
[2018-12-16] MEDS ORDERED: Ketorolac Tromethamine 30 MG/ML VIAL IVP PRN (18:00)
--- NOTE | 2018-12-16 18:40 | PDOC.PN ---
- Subjective Encounter Start Date: 12/16/18 Encounter Start Time: 09:40 Pt seen for followup re: hypotension. Says she feels better. No chest pain, shortness of breath, fevers or chills. - Objective MAR Reviewed: Yes Vital Signs & Weight: Vital Signs (12 hours) Temp Pulse Resp BP Pulse Ox 12/16/18 17:05 98.5 F 82 18 104/68 96 12/16/18 12:34 98 12/16/18 10:27 98.1 F 12/16/18 07:00 97.6 F Weight Weight 170 lb 1.6 oz Most Recent Monitor Data Heart Rate from ECG 86 NIBP 122/49 NIBP BP-Mean 73 Respiration from ECG 18 SpO2 98 I&O: 12/15/18 12/16/18 12/17/18 06:59 06:59 06:59 Intake Total 980 3550 260 Output Total 450 Balance 980 3100 260 Result Diagrams: 12/16/18 15:59 12/16/18 04:52 Additional Labs: Accuchecks 12/16/18 12/16/18 12/16/18 16:21 10:19 05:29 POC Glucose 123 H 182 H 107 12/15/18 21:59 POC Glucose 201 H EKG Reviewed by me: Yes (Tele: NSR) Phys Exam - Physical Examination Constitutional: NAD HEENT: moist MMs Neck: supple Respiratory: clear to auscultation bilateral Cardiovascular: RRR Gastrointestinal: soft Neurological: moves all 4 limbs Psychiatric: normal affect Dx/Plan (1) Hypotension Status: Acute Comment: Improved, etiology unclear (2) Hypothyroidism Code(s): E03.9 - HYPOTHYROIDISM, UNSPECIFIED Status: Chronic Comment: continue synthroid (3) Dyslipidemia Code(s): E78.5 - HYPERLIPIDEMIA, UNSPECIFIED Status: Chronic Comment: continue atorvastatin (4) DM2 (diabetes mellitus, type 2) Status: Chronic Comment: continue accuchecks, insulin sliding scale and metformin - Plan * . Review of Systems - Review of Systems Cardiovascular: negative: chest pain, palpitations, orthopnea, paroxysmal nocturnal dyspnea, edema, light headedness Gastrointestinal: negative: Nausea, Vomiting, Abdominal Pain, Diarrhea, Constipation, Melena, Hematochezia - Medications/Allergies Allergies/Adverse Reactions: Allergies Allergy/AdvReac Type Severity Reaction Status Date / Time No Known Allergies Allergy Verified 12/15/18 03:30 Medications: Current Medications Acetaminophen (Tylenol) 1,000 mg PO Q6H PRN PRN Reason: Moderate to Severe Pain (6-10) Al Hydroxide/Mg Hydroxide (Maalox) 15 ml PO Q6H PRN PRN Reason: Dyspepsia Albuterol/Ipratropium (Duoneb) 3 ml NEB Q4H PRN PRN Reason: Wheezing Atorvastatin Calcium (Lipitor) 10 mg PO HS [facility] Calcium Carbonate (Tums) 1,000 mg PO Q4H PRN PRN Reason: Dyspepsia Last Admin: 12/16/18 17:22 Dose: 1,000 mg Dextrose/Water (Dextrose 50%) 25 gm SLOW IVP PRN PRN PRN Reason: Hypoglycemia Escitalopram Oxalate (Lexapro) 20 mg PO DAILY [facility] Last Admin: 12/16/18 09:23 Dose: 20 mg Famotidine (Pepcid) 20 mg PO Q12HR [facility] Last Admin: 12/16/18 09:23 Dose: 20 mg Glucagon (Glucagon) 1 mg IM PRN PRN PRN Reason: Hypoglycemia Hydralazine HCl (Apresoline) 10 mg SLOW IVP Q4H PRN PRN Reason: SBP > 170 or DBP > 100 Dextrose/Water (D5w) 1,000 mls @ 0 mls/hr IV .Q0M PRN PRN Reason: Hypoglycemia Sodium Chloride (Normal Saline 0.9%) 1,000 mls @ 0 mls/hr IV .Q0M [facility] Ibuprofen (Motrin) 600 mg PO Q6H PRN PRN Reason: Pain Insulin Human Regular (Humulin R) 0 units SC .MODERATE SLIDING SC PRN PRN Reason: Moderate Correctional Scale Ketorolac Tromethamine (Toradol) 30 mg IVP Q6HR PRN PRN Reason: Pain Stop: 12/20/18 18:01 Levothyroxine Sodium (Synthroid) 150 mcg PO 0600 [facility] Last Admin: 12/16/18 04:02 Dose: 150 mcg Metformin HCl (Glucophage) 500 mg PO QAM [facility] Ondansetron HCl (Zofran) 4 mg IVP Q6H PRN PRN Reason: Nausea/Vomiting Polyethylene Glycol (Miralax) 17 gm PO DAILY [facility] Sodium Chloride (Flush - Normal Saline) 10 ml IVF Q12HR [facility] Last Admin: 12/16/18 09:28 Dose: 10 ml Sodium Chloride (Flush - Normal Saline) 10 ml IVF PRN PRN PRN Reason: Saline Flush Tramadol HCl (Ultram) 50 mg PO Q6H PRN PRN Reason: Moderate Pain (4-6) Tramadol HCl (Ultram) 100 mg PO Q6H PRN PRN Reason: Severe Pain (7-10) Last Admin: 12/16/18 15:31 Dose: 100 mg Tramadol HCl (Ultram) 50 mg PO TID [facility]
[2018-12-16] MEDS ORDERED: Atorvastatin Calcium 10 MG TAB PO SCH (21:00)
[2018-12-16] MEDS: traMADol HCl 50 MG TAB PO SCH (21:43)
[2018-12-17 05:31] LABS: #Eosinphils 0.4 thou/uL (0.0-0.7); #Lymphocytes 2.5 thou/uL (1.20-3.40); #Monocytes 0.6 thou/uL (0.11-0.59); #Neutrophils 4.1 thou/uL (1.40-6.50); %Basophils 0.5 % (0.0-1.0); %Eosinophils 5.8 % (0.0-10.0); %Lymphocytes 32.3 % (21.0-51.0); %Monocytes 7.7 % (0.0-10.0); %Neutrophils 53.6 % (42.0-75.0); Mean Corpuscular HGB CONC 34.4 g/dL (32.0-36.0); Mean Corpuscular Hemoglobin 33.1 pg (27.0-31.0); Mean Corpuscular Volume 96.2 fL (78.0-98.0); Mean Platelet Volume 7.6 fL (7.4-10.4); Platelet Count 148 thou/uL (130-400); RBC Distribution Width 11.6 % (11.5-14.5); Red Blood Cell (RBC) Count 2.11 mill/uL (4.20-5.40); White Blood Cell (WBC) Count 7.6 thou/uL (4.8-10.8)
[2018-12-17] MEDS: Levothyroxine 150 MCG TAB PO SCH (05:34)
[2018-12-17] MEDS: traMADol HCl 50 MG TAB PO PRN (05:34)
[2018-12-17 05:45] LABS: ALT (SGPT) 137 U/L (8-55); AST (SGOT) 29 U/L (5-34); Alkaline Phosphatase 94 U/L (40-150); Anion Gap 11 mmol/L (10-20); BUN (Urea Nitrogen) 7 mg/dL (7.0-18.7); Bilirubin, Total 0.5 mg/dL (0.2-1.2); Calc. Creatinine Clearance 132 mL/min (70-130); Carbon Dioxide 23 mmol/L (22-29); Chloride 109 mmol/L (98-107); Estimated GFR-MDRD Greater than 90; Glucose 82 mg/dL (70-105); Potassium 3.5 mmol/L (3.5-5.1); Sodium 139 mmol/L (136-145)
[2018-12-17 07:54] VITALS: TEMP 98.3
[2018-12-17] MEDS ORDERED: metFORMIN 500 MG TAB PO SCH (09:00)
[2018-12-17] MEDS ORDERED: Polyethylene Glycol 3350 17 GM Packet PO SCH (09:00)
[2018-12-17] MEDS: Escitalopram Oxalate 20 mg Tablet PO SCH (09:21)
[2018-12-17] MEDS: Famotidine 20 MG TAB PO SCH (09:22)
[2018-12-17] MEDS: traMADol HCl 50 MG TAB PO SCH (09:24)
[2018-12-17 11:51] VITALS: BP 104/69
--- NOTE | 2018-12-17 12:29 | PRG ---
DATE OF SERVICE: 12/17/2018 SUBJECTIVE: Ms. Westfall is doing well today. OBJECTIVE: VITAL SIGNS: Temperature 98.3, heart rate 74, blood pressure 109/73. HEAD, EARS, EYES, NOSE AND THROAT: Unremarkable. LUNGS: Clear to auscultation. CARDIAC: Regular rate and rhythm without murmur or gallop. ABDOMEN: Soft, nontender. Laparoscopic wounds look good. LABORATORY DATA: This morning, hemoglobin is 7, down from 8.2; however, she does not have any abdominal pain. Basic metabolic profile is normal. Accu-Cheks are normal. ASSESSMENT AND PLAN: Doing well post cholecystectomy and repeat laparoscopy for intraabdominal bleeding. No signs of bleeding now. Hemoglobin is low, but she is not clinically bleeding. I do not think we need to check another hemoglobin. She will take her bariatric vitamins and has iron. She will take twice a day with meals at home. She will follow up with Dr. Haro in 2 to 3 weeks. Job ID: [id number]
--- NOTE | 2018-12-18 14:54 | OP ---
DATE OF PROCEDURE: 12/15/2018 PREOPERATIVE DIAGNOSIS: Postoperative bleeding. CRANK HAND: Dr. Nuñez. PROCEDURES PERFORMED: Diagnostic laparoscopy, evacuation of hematoma, over-sew of abdominal wall. INDICATIONS: A 48-year-old female status post laparoscopic cholecystectomy earlier today. She developed hypotension, tachycardia, and a drop in hemoglobin from 13-8. FINDINGS: The only possible source was from near the abdominal wall incision where there was a little bit of slow ooze of blood. It was about 1500 mL of blood within the abdominal cavity. The clips were intact. There was no bleeding from the subhepatic space or the arteries. DESCRIPTION OF PROCEDURE: After informed consent was obtained, the patient was taken to the operating room, given general endotracheal anesthesia and placed in the supine position. Abdomen was prepped and draped in usual fashion. Local anesthesia infiltrated subcutaneously and deep. The midline incision was opened. The fascial stitch removed. The 12 mm port was inserted. Pneumoperitoneum created to a pressure of 15 mmHg. Three 5 mm ports were placed subcostally. The liver was lifted up. There was minimal blood in the obdulio. Most of blood was along the gutter and into the pelvis. There was no active bleeding seen. This area was thoroughly irrigated. Irrigation fluid removed. Nallely powder was applied to the liver edge and obdulio. The clot was all evacuated. Then, we looked back at the umbilical site. There was a slow drip of blood from there, so a GraNee needle was used to take a 0 Vicryl suture in a [id number] to close this port site controlling this ooze. So, trocars and retractors removed. Skin closed with interrupted 4-0 Rapide. Dermabond applied. The patient tolerated the procedure well and transferred to Recovery in fair condition. Job ID: [id number]
[2018-12-19 09:56] LABS: Actual Bicarbonate (HCO3v) 22 mEq/L (22-28); Analyzer IN Cardio OR; Base Excess -4.5 mEq/L (-2.0 to +3.0); Calcium, Ionized 1.04 mmol/L (1.16-1.32); Chloride (ABG LAB) 106 mmol/L (98-106); Hemoglobin (Hb) 8.7 g/dL (11.7-16.0); Potassium - ABG Lab 4.04 mmol/L (3.70-5.30); Sodium 137.8 mmol/L (133-146); pH (venous) 7.29 (7.32-7.43)
== END 2018-12-17 12:40 | disposition home or self-care (01) | DRG 419 ==
LOC: ERS 17:32 → SURG B 19:52 → OBSVTOIN 19:52 → IMCU/EMU 12-15 23:27 → SURG B 12-16 17:12
PROVIDERS: ADMIT Surgery; ATTEND Surgery
PROC: 0FT44ZZ Resection of Gallbladder, Percutaneous Endoscopic Approach (ICD-10-PCS; principal; 2018-12-15)
PROC: BF13YZZ Fluoroscopy of Gallbladder and Bile Ducts using Other Contrast (ICD-10-PCS; 2018-12-15)
DX: K80.32 Calculus of bile duct with acute cholangitis without obstruction (principal); E11.9 Type 2 diabetes mellitus without complications; I10 Essential (primary) hypertension; E78.5 Hyperlipidemia, unspecified; E03.9 Hypothyroidism, unspecified; I95.9 Hypotension, unspecified; Z85.850 Personal history of malignant neoplasm of thyroid; Z98.84 Bariatric surgery status; Z90.89 Acquired absence of other organs; Z90.710 Acquired absence of both cervix and uterus; Z79.84 Long term (current) use of oral hypoglycemic drugs
CPT/HCPCS: 36415; 36416; 36430; 47532; 70450; 76705; 80048; 80053; 80076; 81003; 81015; 83605; 83690; 84484; 85025; 86850; 86900; 86901; 88304; 96361; 96374; 96375; J0670; J0694; J1650; J1885; J1956; J2270; J2405; J3010; P9016; Q9961; S0028

== ENCOUNTER 2019-01-30 09:35 | Outpatient (CLI) | payer BC ==
--- NOTE | 2019-01-30 11:19 | MRI ---
MRI Cervical Spine WO Con History: M 48.02 cervical stenosis of spinal canal Comparison: None Findings: Cerebral tonsils terminate at the level of the foramen magnum. Abnormal increased fluid sig nal of the cord at C5/C6. No marrow infiltrative process. No cervical adenopathy. No paraspinal muscle edema. Levels are as follows: C2/C3: Mild disc desiccation. Low-grade broad-based posterior disc osteophyte complex. No neural fora khoi or spinal canal narrowing. C3/C4: Mild degenerative disc space height loss with circumferential disc osteophyte complex. Mild ef facement of ventral CSF space and the spinal canal measures approximately 8 mm. Mild to moderate right facet arthropathy. Mild left and moderate right neural foraminal narrowing. C4/C5: Mild facet arthropathy. Mild degenerative disc space height loss is circumferential disc bulge greatest in the central zone. There is effacement of the ventral CSF space with spinal canal measuring approximately 8 mm. Mild posterior process hypertrophy. Moderate bilateral neural foraminal narrowing. C5/C6: Large posterior disc osteophyte complex narrows spinal canal to approximate 6 mm with ventral cord abutment. Moderate bilateral neural foraminal narrowing. C6/C7: Mild disc space height loss. Circumferential disc osteophyte complex. Mild effacement of ventr al CSF space. Spinal canal measures approximately 7 mm. Mild facet arthropathy. Impression: Multilevel spondylosis, greatest at C5/C6 with a very large posterior disc osteophyte com plex abutting the cord with abnormal increased fluid signal. Neurosurgical consultation advised.
== END 2019-01-30 09:36 | disposition home or self-care (01) ==
LOC: BICMRI 09:35
PROVIDERS: ATTEND Nurse Practitioner Family
DX: M48.02 Spinal stenosis, cervical region (principal); M47.812 Spondylosis without myelopathy or radiculopathy, cervical region; M25.78 Osteophyte, vertebrae; R93.7 Abnormal findings on diagnostic imaging of other parts of musculoskeletal system
CPT/HCPCS: 72141

== ENCOUNTER 2019-02-20 07:44 | Outpatient (CLI) | payer BC ==
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
== END 2019-02-20 07:45 | disposition home or self-care (01) ==
LOC: TBSIIMAG 07:44
PROVIDERS: ATTEND Neurological Surgery
DX: M51.14 Intervertebral disc disorders with radiculopathy, thoracic region (principal)
CPT/HCPCS: 72146

== ENCOUNTER 2019-08-30 08:59 | Outpatient (CLI) | payer BC ==
--- NOTE | 2019-08-30 10:31 | MRI ---
MR the lumbar spine with and without contrast: 08/30/2019 History: Prior back surgery, recent fall, left lower extremity radiculopathy COMPARISON: 05/12/2018 TECHNIQUE: Multiplanar multisequence MR images were obtained of lumbar spine with and without IV cont rast FINDINGS: On the basis of 5 lumbar type vertebral bodies, conus medullaris terminates at theL1 level. Sagittal STIR imaging demonstrates no focal area of osseous marrow edema. T12-L1:Intervertebral disc height and signal intensity within normal limits. Mild bilateral facet hyp ertrophy with no central canal or neural foraminal stenosis. L1-2:Mild bilateral facet hypertrophy. Intervertebral disc height and signal intensity within normal limits with no central canal or neural foraminal stenosis. L2-3:Disc space narrowing with disc desiccation, disc bulge, and small central disc protrusion. No as sociated central canal or neural foraminal stenosis. Findings are stable when compared to the 2018 exam. L3-4:Mild bilateral facet hypertrophy. Small stable right foraminal disc protrusion with no significa nt central canal or neural foraminal stenosis. L4-5:Bilateral facet hypertrophy and hypertrophy of the ligamentum flavum, right greater than left. I ntervertebral disc height and signal intensity within normal limits with no significant central canal or neural foraminal stenosis. L5-S1:Disc space narrowing with disc desiccation and disc bulge. Bilateral facet hypertrophy, left gr eater than right. L5 laminectomy changes are noted. No significant central canal stenosis. Mild right and severe left neural foraminal stenosis. There has been no significant interval change when c ompared to the 2018 exam with respect to the findings at the L5-S1 level. Image retroperitoneal structures demonstrateno acute findings. The postcontrast imaging demonstrates no abnormal enhancement involving the nerve roots of the cauda equina or contents of the thecal sac. No significant abnormal enhancement is seen involving the osseous structures or intervertebral disc at any level. IMPRESSION: Stable postoperative and degenerative changes within the lumbar spine.
== END 2019-08-30 09:00 | disposition home or self-care (01) ==
LOC: SCSMRI 08:59
PROVIDERS: ATTEND Physician Assistant
DX: M51.16 Intervertebral disc disorders with radiculopathy, lumbar region (principal); M47.26 Other spondylosis with radiculopathy, lumbar region; M96.1 Postlaminectomy syndrome, not elsewhere classified; Z98.890 Other specified postprocedural states
CPT/HCPCS: 72158

== ENCOUNTER 2019-11-14 07:44 | Outpatient (CLI) | payer BC ==
--- NOTE | 2019-11-14 08:13 | ULT ---
Exam: Thyroid ultrasound HISTORY: Total thyroidectomy. Status post thyroid cancer diagnosis in 2017. TECHNIQUE: Sagittal and transverse imaging of the thyroid bed was performed FINDINGS: There is no sonographic evidence of residual thyroid tissue. IMPRESSION: No sonographic evidence of residual thyroid tissue. If there is concern for residual thyr oid tissue, consider nuclear medicine imaging.
== END 2019-11-14 07:45 | disposition home or self-care (01) ==
LOC: BICULT 07:44
PROVIDERS: ATTEND Internal Medicine Endocrinology, Diabetes & Metabolism
DX: C73 Malignant neoplasm of thyroid gland (principal)
CPT/HCPCS: 76536

== ENCOUNTER 2021-04-02 07:34 | Outpatient (CLI) | payer BC | END 2021-04-02 07:35 | disposition home or self-care (01) | LOC: TBSIIMAG 07:34 | PROVIDERS: ATTEND Family Medicine | DX: M96.1 Postlaminectomy syndrome, not elsewhere classified (principal); M51.16 Intervertebral disc disorders with radiculopathy, lumbar region; M48.061 Spinal stenosis, lumbar region without neurogenic claudication; M48.07 Spinal stenosis, lumbosacral region | CPT/HCPCS: 72148 ==

== ENCOUNTER 2021-06-09 13:42 | Outpatient (CLI) | payer BC | END 2021-06-09 13:43 | disposition home or self-care (01) | LOC: TBSIIMAG 13:42 | PROVIDERS: ATTEND Neurological Surgery | DX: M51.26 Other intervertebral disc displacement, lumbar region (principal); M47.816 Spondylosis without myelopathy or radiculopathy, lumbar region | CPT/HCPCS: 72100 ==

== ENCOUNTER 2021-07-14 08:28 | Outpatient (CLI) | payer BC ==
[2021-07-14 10:00] LABS: Hemoglobin 12.7 g/dL (12.0-15.5); Mean Corpuscular HGB CONC 32.8 g/dL (32.0-36.0); Mean Corpuscular Hemoglobin 31.1 pg (27.0-33.0); Mean Corpuscular Volume 94.9 fl (81.6-98.3); Mean Platelet Volume 9.5 fl (7.4-10.4); Platelet Count 268 10x3/uL (150-450); RBC Distribution Width 12.7 % (11.5-14.5); Red Blood Cell (RBC) Count 4.08 10x6/uL (3.90-5.03); White Blood Cell (WBC) Count 6.4 10x3/uL (3.5-10.5)
[2021-07-14 10:23] LABS: Anion Gap 12 mmol/L (10-20); BUN (Urea Nitrogen) 10 mg/dL (7.0-18.7); Calc. Creatinine Clearance 0 mL/min (70-130); Calcium 9.1 mg/dL (7.8-10.44); Carbon Dioxide 29 mmol/L (22-29); Chloride 106 mmol/L (98-107); Glucose 110 mg/dL (70-105); Potassium 4.3 mmol/L (3.5-5.1); Sodium 143 mmol/L (136-145)
[2021-07-14 18:10] LABS: SARS-CoV-2 PCR by NAA Not Detected (NotDetected)
== END 2021-07-14 08:29 | disposition home or self-care (01) ==
LOC: LABBT 08:28
PROVIDERS: ATTEND Neurological Surgery
DX: Z01.818 Encounter for other preprocedural examination (principal); M43.16 Spondylolisthesis, lumbar region; M51.26 Other intervertebral disc displacement, lumbar region; Z20.822 Contact with and (suspected) exposure to COVID-19
CPT/HCPCS: 80048; 85027; 93005; 93010; U0003; U0005

== ENCOUNTER 2021-07-17 05:44 | Day surgery (SDC) | payer BC ==
[2021-07-13 11:47] VITALS: BMI 30.2
[2021-07-17] MEDS ORDERED: ceFAZolin 2 GM/DEX 5% 100 ML BAG ONE ×4 (05:56→10:27)
[2021-07-17] MEDS ORDERED: Fentanyl 100 MCG/2 ML VIAL ONE ×2 (06:25→08:46)
[2021-07-17] MEDS ORDERED: Thrombin 5000 UNITS/5 ML VIAL ONE (06:27)
[2021-07-17] MEDS ORDERED: Bupivacaine PF 0.5% 30 ML VIAL ONE (06:27)
[2021-07-17] MEDS ORDERED: EPINEPHrine 1 MG/ML AMP ONE (06:27)
[2021-07-17] MEDS ORDERED: PROPOFOL 200 MG/20 ML VIAL ONE (07:10)
[2021-07-17] MEDS ORDERED: Glycopyrrolate 0.2 MG/ML 5 ML SYRINGE ONE (07:10)
[2021-07-17] MEDS ORDERED: Ondansetron PF 4 MG/2 ML Vial ONE (07:10)
[2021-07-17] MEDS ORDERED: Rocuronium Bromide 10 MG/ML (10ML VIAL) ONE (07:10)
[2021-07-17] MEDS ORDERED: Ketorolac Tromethamine 30 MG/ML VIAL ONE (07:10)
[2021-07-17] MEDS ORDERED: Phenylephrine 10 MG/ML VIAL ONE (07:10)
[2021-07-17] MEDS ORDERED: Lidocaine 1% PF 5 ML VIAL ONE (07:10)
[2021-07-17] MEDS ORDERED: ePHEDrine 50 MG/ML VIAL ONE (07:10)
[2021-07-17] MEDS ORDERED: HYDROcodone/Acetaminophen 5/325 mg Tablet ONE (10:27)
== END 2021-07-17 12:05 | disposition home or self-care (01) ==
LOC: SDC 05:44
PROVIDERS: ATTEND Neurological Surgery
PROC: 0SG3071 Fusion of Lumbosacral Joint with Autologous Tissue Substitute, Posterior Approach, Posterior Column, Open Approach (ICD-10-PCS; principal; 2021-07-17)
PROC: 0SG30K1 Fusion of Lumbosacral Joint with Nonautologous Tissue Substitute, Posterior Approach, Posterior Column, Open Approach (ICD-10-PCS; principal; 2021-07-17)
DX: M43.16 Spondylolisthesis, lumbar region (principal); M51.16 Intervertebral disc disorders with radiculopathy, lumbar region; M48.061 Spinal stenosis, lumbar region without neurogenic claudication; E89.0 Postprocedural hypothyroidism; G89.29 Other chronic pain; E78.5 Hyperlipidemia, unspecified; E11.9 Type 2 diabetes mellitus without complications; I10 Essential (primary) hypertension; Z79.84 Long term (current) use of oral hypoglycemic drugs; Z79.899 Other long term (current) drug therapy
CPT/HCPCS: 76000; C1713; J0171; J1885; J2370; J2405; J2704; J3010; J3490; S0020